=== PATIENT | female | born 1950 | race Caucasian/White ===

== ENCOUNTER 2024-09-12 08:03 | Day surgery (SDC) | payer OTHER ==
[2024-09-04 15:06] VITALS: BMI 33.6
[2024-09-12] MEDS ORDERED: TROPICAMIDE 1% 3 ML EYE DROPS ONE (08:35)
[2024-09-12] MEDS ORDERED: CYCLOPENTOLATE HCL 1% OPHTH SOLN 2 ML BOTTLE ONE (08:35)
[2024-09-12] MEDS ORDERED: OFLOXACIN 0.3% OPHTHALMIC SOLUTION 5 ML BOTTLE ONE (08:35)
[2024-09-12] MEDS ORDERED: PHENYLEPHRINE 2.5% OPTHALMIC DROP 2ML BOTTLE ONE (08:35)
[2024-09-12] MEDS ORDERED: KETOROLAC TROMETHAMINE 0.5% EYE DROP 1 DROP DROPS ONE (08:35)
[2024-09-12] MEDS: OFLOXACIN 0.3% OPHTHALMIC SOLUTION 5 ML BOTTLE OS SCH (08:45)
[2024-09-12] MEDS: CYCLOPENTOLATE HCL 1% OPHTH SOLN 2 ML BOTTLE OS SCH (08:45)
[2024-09-12] MEDS: KETOROLAC TROMETHAMINE 0.5% EYE DROP 1 DROP DROPS OS SCH (08:45)
[2024-09-12] MEDS: TROPICAMIDE 1% OPHTH SOLN 15 ML BOTTLE OS SCH (08:45)
[2024-09-12] MEDS: PHENYLEPHRINE 2.5% OPHTH SOLN 15 ML BOTTLE OS SCH (08:45)
[2024-09-12] MEDS ORDERED: BETAXOLOL HCL 0.25% OPHTHALMIC 10 ML DROPSBTL ONE (09:08)
[2024-09-12] MEDS ORDERED: EPI-SHUGARCAINE (EPINEPHRINE 0.025% & LIDOCAINE-PF 0.75%) 4ML ONE (09:08)
[2024-09-12] MEDS ORDERED: NEO/POLYMYX B SULF/DEXAMETH OPHTHALMIC 5ML BOTTLE ONE (09:08)
[2024-09-12] MEDS ORDERED: EPINEPHrine/PF 1 MG/1 ML (1:1,000) AMPULE ONE (09:08)
[2024-09-12] MEDS ORDERED: POVIDONE-IODINE 5% OPHTHALMIC PREP 30 ML SOLUTION ONE (09:08)
[2024-09-12] MEDS ORDERED: TETRACAINE 0.5% OPHTH SOLN 2 ML BOTTLE ONE (09:08)
[2024-09-12] MEDS ORDERED: BACITRACIN/POLYMYXIN OPH OINT 3.5 GM TUBE ONE (09:08)
[2024-09-12] MEDS ORDERED: ACETAMINOPHEN 325 MG TABLET (FP) PO PRN (09:13)
[2024-09-12] MEDS ORDERED: MIDAZOLAM HCL 2 MG/2 ML SINGLE DOSE VIAL ONE (10:37)
[2024-09-12 11:30] VITALS: RESP 18; TEMP 97.8
[2024-09-12 12:38] VITALS: BP 121/71; PULSE 74
== END 2024-09-12 12:25 | disposition home or self-care (01) ==
LOC: FASU 08:03
PROVIDERS: ATTEND Ophthalmology
PROC: 08RK3JZ Replacement of Left Lens with Synthetic Substitute, Percutaneous Approach (ICD-10-PCS; principal; 2024-09-12 10:50)
DX: H25.89 Other age-related cataract (principal)
CPT/HCPCS: 66984; V2632; 82962